=== PATIENT | male | born 1980 | race Two or more races ===

== ENCOUNTER 2021-12-30 12:00 | Emergency (ER) | payer BC, OTHER ==
[2021-12-30] MEDS ORDERED: Sodium Chloride 0.9% 10 ML Syringe FLUSH PRN (13:34)
[2021-12-30] MEDS ORDERED: Sodium Chloride 0.9% 1,000 ML IV ONE (13:34)
[2021-12-30] MEDS ORDERED: Sodium Chloride 0.9% 2.5 ML Syringe FLUSH PRN (13:34)
[2021-12-30 14:30] LABS: CARBON DIOXIDE,CO2 25.9 mmol/L (21.0-32.0); POTASSIUM,K 3.9 mmol/L (3.5-5.1)
[2021-12-30] MEDS ORDERED: Gadobenate Dimeglumine 529 MG/ML 20 ML SDV IVPUSH STA (15:14)
== END 2021-12-30 20:27 | disposition home or self-care (01) ==
LOC: MW.ED 12:00
DX: S81.832A Puncture wound without foreign body, left lower leg, initial encounter (principal); S86.112A Strain of other muscle(s) and tendon(s) of posterior muscle group at lower leg level, left leg, initial encounter; Z88.8 Allergy status to other drugs, medicaments and biological substances; W17.89XA Other fall from one level to another, initial encounter; Y99.0 Civilian activity done for income or pay
CPT/HCPCS: 36415; 73590; 73600; 73720; 80053; 82550; 85025; 85610; 85652; 85730; 86140; 87040; 96361; 96374; 99284; A9577; J3490; J7030; 99285

== ENCOUNTER 2023-01-27 14:43 | Emergency (ER) | payer SELFPAY ==
[2023-01-27] MEDS ORDERED: Sodium Chloride 0.9% 2.5 ML Syringe FLUSH PRN (15:11)
[2023-01-27] MEDS ORDERED: Sodium Chloride 0.9% 10 ML Syringe FLUSH PRN (15:11)
[2023-01-27 15:48] LABS: BASOPHILS PERCENT AUTO 0.5 % (0.0-1.5); EOSINOPHILS ABSOLUTE AUTO 0.2 K/uL (0.0-0.7); EOSINOPHILS PERCENT AUTO 3.6 % (0.0-7.0); HEMATOCRIT 43.2 % (38.0-50.0); HEMOGLOBIN 14.8 g/dL (13.0-17.0); LYMPHOCYTES ABSOLUTE AUTO 2.3 K/uL (0.6-2.4); LYMPHOCYTES PERCENT AUTO 35.9 % (16.0-40.0); MEAN CORPUSCULAR HEMOGLOBIN 29.8 pg (27.0-32.0); MEAN CORPUSCULAR HGB CONC 34.3 g/dL (31.0-37.0); MEAN CORPUSCULAR VOLUME 86.9 fL (80.0-98.0); MONOCYTES ABSOLUTE AUTO 0.4 K/uL (0.0-0.8); MONOCYTES PERCENT AUTO 6.4 % (0.0-15.0); NEUTROPHILS ABSOLUTE AUTO 3.5 K/uL (1.4-5.7); NEUTROPHILS PERCENT AUTO 53.6 % (48.0-80.0); NRBC ABSOLUTE 0 K/uL; PLATELET COUNT,PLT 334 K/uL (150-400); RED BLOOD CELL COUNT 4.97 M/uL (4.50-5.90); WHITE BLOOD CELL COUNT,WBC 6.43 K/uL (4.0-11.0)
[2023-01-27 15:49] LABS: INR 1.03 (0.86-1.11); PTT,PARTIAL THROMBOPLSTIN TIME 30.3 SEC (23.9-30.7)
[2023-01-27 15:55] LABS: CALCIUM 8.7 mg/dL (8.5-10.1); CARBON DIOXIDE,CO2 26.8 mmol/L (21.0-32.0); CREATININE 0.7 mg/dL (0.8-1.3); EST CRCL DRUG DOSING (CG) 131.64 mL/min; POTASSIUM,K 4.4 mmol/L (3.5-5.1)
[2023-01-27] MEDS ORDERED: [UNRECOGNIZED DRUG - OTHER] IVPUSH ONE ×2 (16:30)
== END 2023-01-27 19:04 | disposition home or self-care (01) ==
LOC: MW.ED 14:43
DX: D67 Hereditary factor IX deficiency (principal); M25.061 Hemarthrosis, right knee; Z88.8 Allergy status to other drugs, medicaments and biological substances
CPT/HCPCS: 36415; 80048; 85025; 85610; 85730; 96374; 99283-25; 99284; J3490

== ENCOUNTER 2023-12-03 15:19 | Emergency (ER) | payer BC ==
[2023-12-03] MEDS: Methocarbamol 750 MG Tab PO STA (16:45)
[2023-12-03] MEDS: methylPREDNISolone Sodium Succinate 40 MG/1 ML SDV IM STA (16:45)
[2023-12-03] MEDS: Ketorolac 30 MG/ML SDV IM STA (16:45)
== END 2023-12-03 17:17 | disposition home or self-care (01) ==
LOC: MW.ED 15:19
DX: M25.551 Pain in right hip (principal); Z79.899 Other long term (current) drug therapy; Z75.8 Other problems related to medical facilities and other health care; Z88.8 Allergy status to other drugs, medicaments and biological substances
CPT/HCPCS: 73502; 96372; 99283; A9270; J1885; J2919

== ENCOUNTER 2023-12-09 12:09 | Emergency (ER) | payer BC ==
[2023-12-09] MEDS: Lidocaine 4% 1 each Patch TOP STA (13:00)
== END 2023-12-09 13:13 | disposition home or self-care (01) ==
LOC: MW.ED 12:09
DX: M25.561 Pain in right knee (principal); M79.651 Pain in right thigh; Z88.8 Allergy status to other drugs, medicaments and biological substances; Z79.899 Other long term (current) drug therapy; Z75.8 Other problems related to medical facilities and other health care; X50.1XXA Overexertion from prolonged static or awkward postures, initial encounter
CPT/HCPCS: 99283; A9270